=== PATIENT | male | born 1990 ===

== ENCOUNTER 2017-01-22 00:01 | Emergency (ER) | payer SELFPAY ==
[2017-01-22 00:06] VITALS: RESP 18
--- NOTE | 2017-01-22 01:29 | C.PDOC ---
History Of Present Illness 27 year old male was brought to the ED by EMS after being found intoxicated at a [employer]. Police were involved for alleged shoplifting. Patient admits to alcohol abuse and denies any injuries or physical complaints at this time. Time Seen by Provider: 01/22/17 00:18 Chief Complaint (Nursing): Substance Abuse History Per: Patient, EMS History/Exam Limitations: no limitations Suicide/Self Injury Attempted (Context): None Associated Symptoms: denies: Suicidal Thoughts, Suicidal Plan Involuntary Hold By: None Recent travel outside of the [place]: No Past Medical History Reviewed: Historical Data, Nursing Documentation, Vital Signs Vital Signs: Last Vital Signs Temp 98.2 F 01/22/17 03:08 Pulse 68 01/22/17 03:08 Resp 18 01/22/17 03:08 BP 98/66 L 01/22/17 03:08 Pulse Ox 98 01/22/17 03:08 Family History: States: Unknown Family Hx - Social History Hx Alcohol Use: Yes Hx Substance Use: No Review Of Systems Constitutional: Negative for: Fever Cardiovascular: Negative for: Chest Pain Respiratory: Negative for: Shortness of Breath Gastrointestinal: Negative for: Nausea, Vomiting, Abdominal Pain, Diarrhea Psych: Negative for: Suicidal ideation Physical Exam - Physical Exam Appears: Non-toxic, No Acute Distress, Other (EtOH on breath, patient difficult to redirect. ) Skin: Warm, Dry Head: Atraumatic Eye(s): bilateral: Normal Inspection, PERRL, EOMI Oral Mucosa: Moist Neck: Supple Chest: Symmetrical, No Deformity Cardiovascular: Rhythm Regular Respiratory: Normal Breath Sounds, No Rhonchi, No Wheezing Gastrointestinal/Abdominal: Soft, No Tenderness, No Distention, No Guarding, No Rebound Neurological/Psych: Oriented x3 ED Course And Treatment O2 Sat by Pulse Oximetry: 98 (room air ) Reevaluation Time: 05:30 Reassessment Condition: Improved Medical Decision Making Medical Decision Making: alcohol intox requiring sedation for safety ED OBSERVATION Discharge: Yes Date of observation admission: 01/22/17 Time of observation admission: 01:00 - Observation admission statement Patient is being placed in observation because:: patient is intoxicated. - Goals of Observation Goals of observation are:: sobriety. Disposition Doctor Will See Patient In The: Office Counseled Patient/Family Regarding: Studies Performed, Diagnosis - Disposition Disposition: HOME/ ROUTINE Disposition Time: 05:30 Condition: GOOD Forms: [facility] (Anguillan) - Clinical Impression Clinical Impression: Alcohol abuse - Scribe Statement The provider has reviewed the documentation as recorded by the Scribe Joya Dorado All medical record entries made by the Scribe were at my direction and personally dictated by me. I have reviewed the chart and agree that the record accurately reflects my personal performance of the history, physical exam, medical decision making, and the department course for this patient. I have also personally directed, reviewed, and agree with the discharge instructions and disposition.
[2017-01-22 05:36] VITALS: BP 101/63; PULSE 95; TEMP 98; O2SAT 97
== END 2017-01-22 05:39 | disposition home or self-care (01) ==
LOC: C.ER 00:01
DX: F10.10 Alcohol abuse, uncomplicated (principal)
CPT/HCPCS: 82948; 96372; 99285; J2060; J3486

== ENCOUNTER 2017-02-01 10:21 | Emergency (ER) | payer OTHER ==
[2017-02-01 11:23] LABS: BASO % 0.2 % (0.0-2.0); EOS % 0.1 % (0.0-4.0); HEMATOCRIT 47.3 % (35.0-51.0); LYMPH # 1.1 K/uL (1.0-4.3); LYMPH % 15.1 % (20.0-40.0); MEAN CELL VOLUME 87.1 fL (80.0-94.0); MEAN CORPUSCULAR HEMOGLOBIN 29.2 pg (27.0-31.0); MEAN CORPUSCULAR HGB CONC 33.6 g/dL (33.0-37.0); MEAN PLATELET VOLUME 9.3 fL (7.2-11.7); MONO # 0.6 K/uL (0.0-0.8); RED CELL DISTRIBUTION WIDTH 13.3 % (11.5-14.5); WHITE BLOOD COUNT 7.1 K/uL (4.8-10.8)
[2017-02-01 11:29] LABS: CHLORIDE 95 mmol/L (98-107); POTASSIUM 3.9 mmol/L (3.6-5.2); SODIUM 135 mmol/L (132-148)
[2017-02-01] MEDS ORDERED: Sodium Chloride 0.9% 1,000 ML IV ONE (11:30)
[2017-02-01 11:31] LABS: GFR AFRICAN-AMERICAN > 60
[2017-02-01 11:32] LABS: ALB/GLOB RATIO 1.3 (1.0-2.1); ALKALINE PHOSPHATASE 95 U/L (38-126); ALT/SGPT 34 U/L (21-72); AST/SGOT 43 U/L (17-59); BLOOD UREA NITROGEN 11 mg/dL (9-20); CALCIUM 9.2 mg/dl (8.6-10.4); CARBON DIOXIDE 28 mmol/L (22-30); GLUCOSE,RANDOM 102 mg/dL (75-110); TOTAL PROTEIN 7.9 g/dL (6.3-8.3)
[2017-02-01 11:36] LABS: RBC URINE < 1 /hpf (0-3); URINE BACTERIA RARE (<OCC); URINE BILIRUBIN NEGATIVE (NEGATIVE); URINE BLOOD NEGATIVE (NEGATIVE); URINE COLOR Amber (YELLOW); URINE GLUCOSE (UA) NORMAL (Normal); URINE KETONE TRACE mg/dL (NEGATIVE); URINE LEUKOCYTE ESTERASE NEG Leu/uL (Negative); URINE PROTEIN 1+ mg/dL (NEGATIVE); WBC URINE 1 /hpf (0-5)
--- NOTE | 2017-02-01 11:43 | C.PDOC ---
History Of Present Illness 27 yr old male presents to the ER with complaints of epigastric pain, nausea and vomiting stating he has been binging on alcohol, percocet and marijuana for the past 5 days. Patient is also requesting detox. He denies SI, HI, fever, chest pain, SOB, diarrhea, dysuria. Time Seen by Provider: 02/01/17 10:26 Chief Complaint (Nursing): Abdominal Pain History Per: Patient History/Exam Limitations: no limitations Onset/Duration Of Symptoms: Days Severity: Mild Past Medical History Reviewed: Historical Data, Nursing Documentation, Vital Signs Vital Signs: Last Vital Signs Temp 98 F 02/01/17 11:58 Pulse 88 02/01/17 11:58 Resp 20 02/01/17 11:58 BP 118/86 02/01/17 11:58 Pulse Ox 100 02/01/17 12:05 - Medical History PMH: Gastritis Family History: States: No Known Family Hx - Social History Hx Alcohol Use: Yes Hx Substance Use: Yes Review Of Systems Except As Marked, All Systems Reviewed And Found Negative. Constitutional: Negative for: Fever Cardiovascular: Negative for: Chest Pain, Palpitations Respiratory: Negative for: Shortness of Breath Gastrointestinal: Positive for: Nausea, Vomiting, Abdominal Pain (Epigastric ). Negative for: Diarrhea Genitourinary: Negative for: Dysuria Neurological: Negative for: Weakness, Numbness Psych: Negative for: Suicidal ideation Physical Exam - Physical Exam Appears: Well, Non-toxic, No Acute Distress Skin: Warm, Dry, No Rash Oral Mucosa: Moist Cardiovascular: Rhythm Regular, No Murmur Respiratory: Normal Breath Sounds, No Rales, No Rhonchi, No Wheezing Gastrointestinal/Abdominal: Normal Exam, Bowel Sounds, Soft, No Tenderness, No Rebound Extremity: Normal ROM, No Swelling Neurological/Psych: Oriented x3 ED Course And Treatment - Laboratory Results Result Diagrams: 02/01/17 11:18 02/01/17 11:18 O2 Sat by Pulse Oximetry: 100 (RA) Pulse Ox Interpretation: Normal Progress Note: PLAN: Blood work, UA, UDS ordered and reviewed. Patient given IV NS bolus, IV pepcid and IV zofran. Spoke with crisis counselor, there are no current detox beds available. Reevaluation Time: 11:45 Reassessment Condition: Improved (Patient reassessed, is currently resting comfortably and states he feels better. On exam, abdomen is soft and nontender. Blood work and UA unremarkable. Patient is well appearing and comfortable being discharged home. Rxs for pepcid and zofran given. Patient instructed to follow up with PMD/clinic in 1-2 days, and he understands he should return to ED if symptoms worsen.) Disposition Counseled Patient/Family Regarding: Diagnosis, Need For Followup, Rx Given - Disposition Referrals: [facility] [Outside] Disposition: HOME/ ROUTINE Disposition Time: 11:45 Condition: STABLE Additional Instructions: SEGUIMIENTO CON MAYS DOCTOR / CLNICA EN 1-2 CARRASCO USE LOS MEDICAMENTOS QUE VIDAL NECESARIOS BEBIDA DE FLUIDOS CORTNEY DEVUELVA A LA ALEXANDRE DE EMERGENCIA SI LOS SNTOMAS EMPEORARAN Prescriptions: Famotidine [Pepcid] 20 mg PO BID PRN #15 tab PRN Reason: abdominal Ondansetron [Zofran Odt] 4 mg PO Q8 PRN #12 odt PRN Reason: Nausea/Vomiting Instructions: Abuse of Alcohol (ED), Polysubstance Abuse (ED), Epigastric Pain (ED) Forms: [employer] (Macanese) Print Language: UZBEK - Clinical Impression Clinical Impression: Epigastric abdominal pain, Alcohol abuse, Substance abuse - Scribe Statement The provider has reviewed the documentation as recorded by the Scribjoel Matthews Provider Attestation: All medical record entries made by the Scribe were at my direction and personally dictated by me. I have reviewed the chart and agree that the record accurately reflects my personal performance of the history, physical exam, medical decision making, and the department course for this patient. I have also personally directed, reviewed, and agree with the discharge instructions and disposition.
[2017-02-01 11:58] VITALS: BP 118/86; PULSE 88; RESP 20; TEMP 98
[2017-02-01 12:01] VITALS: O2SAT 100
== END 2017-02-01 12:15 | disposition home or self-care (01) ==
LOC: C.ER 10:21
DX: F10.10 Alcohol abuse, uncomplicated (principal); F12.10 Cannabis abuse, uncomplicated; Y90.9 Presence of alcohol in blood, level not specified; R10.13 Epigastric pain
CPT/HCPCS: 80053; 81001; 83690; 85025; 96361; 96374; 96375; 99285; G0480; J2405; J7040

== ENCOUNTER 2017-10-09 08:44 | Emergency (ER) | payer OTHER ==
[2017-10-09 08:44] VITALS: BMI 21.1
[2017-10-09] MEDS ORDERED: Pantoprazole 40 mg EC Tab PO STA (09:42)
[2017-10-09] MEDS ORDERED: Sodium Chloride 0.9% 1,000 ML IV ONE (09:42)
[2017-10-09] MEDS ORDERED: Sodium Chloride 0.9% 250 ML IV ONE (09:49)
--- NOTE | 2017-10-09 09:53 | C.PDOC ---
History Of Present Illness 27 yo male come in for evaluation of intermittent periumbilical pain for past 2 days. Otherwise, denies fever, chills, recent illness, food intolerance, CP,SOB , dyspnea, diaphoresis, cough, vomiting, diarrhea, back pain, UTI sx. At the time of evaluation, pt appears comfortable, not in any apparent distress. Time Seen by Provider: 10/09/17 09:01 Chief Complaint (Nursing): Abdominal Pain History Per: Patient Onset/Duration Of Symptoms: Intermittent Episodes Past Medical History Reviewed: Historical Data, Nursing Documentation, Vital Signs Vital Signs: Last Vital Signs Temp 98.5 F 10/09/17 12:17 Pulse 66 10/09/17 12:17 Resp 17 10/09/17 12:17 BP 114/68 10/09/17 12:17 Pulse Ox 97 10/09/17 12:55 - Medical History PMH: Gastritis Surgical History: No Surg Hx Family History: States: Unknown Family Hx - Social History Hx Tobacco Use: No Hx Alcohol Use: Yes Hx Substance Use: Yes - Immunization History Hx Tetanus Toxoid Vaccination: No Hx Influenza Vaccination: No Hx Pneumococcal Vaccination: No Review Of Systems Except As Marked, All Systems Reviewed And Found Negative. Constitutional: Negative for: Fever, Chills ENT: Negative for: Throat Pain Cardiovascular: Negative for: Chest Pain, Palpitations Respiratory: Negative for: Cough, Shortness of Breath, Wheezing Gastrointestinal: Positive for: Nausea, Abdominal Pain. Negative for: Vomiting , Diarrhea, Melena, Hematochezia, Hematemesis Genitourinary: Negative for: Dysuria Musculoskeletal: Negative for: Neck Pain, Back Pain Skin: Negative for: Rash Neurological: Negative for: Weakness, Numbness, Headache Physical Exam - Physical Exam Appears: Well, Non-toxic, No Acute Distress Skin: Normal Color, Warm, Dry, No Rash Head: Normacephalic Eye(s): bilateral: PERRL Nose: No Flaring, No Discharge Oral Mucosa: Moist Throat: No Erythema, No Drooling Neck: Trachea Midline, Supple Cardiovascular: Rhythm Regular Respiratory: No Decreased Breath Sounds, No Accessory Muscle Use, No Stridor, No Wheezing Gastrointestinal/Abdominal: Soft, Tenderness (periumbilical and RLQ mild tenderness), No Distention, No Guarding, No Rebound Back: No CVA Tenderness Extremity: Normal ROM, No Deformity, No Swelling Neurological/Psych: Oriented x3, Normal Speech ED Course And Treatment - Laboratory Results Result Diagrams: 10/09/17 10:17 10/09/17 10:17 Lab Interpretation: Normal O2 Sat by Pulse Oximetry: 97 Pulse Ox Interpretation: Normal - CT Scan/US CT abd/pelvis Other Rad Studies (CT/US): Radiology Report Reviewed CT/US Interpretation: PROCEDURE: CT Abdomen and Pelvis with contrast. HISTORY : abd pain. COMPARISON: None. TECHNIQUE: CT scan of the abdomen pelvis was performed after the administration of IV and oral contrast. Coronal and sagittal reconstructions were also acquired. . Contrast Dose: 100 cc Visipaque 320 IV contrast. Radiation dose: Total exam DLP = 480 mGy-cm. FINDINGS: LOWER THORAX: Visualized lung bases are clear. Heart is normal in size. LIVER : Unremarkable. GALLBLADDER AND BILE DUCTS: Unremarkable. PANCREAS: Unremarkable. SPLEEN: Unremarkable. ADRENALS: Unremarkable. KIDNEYS AND URETERS: Unremarkable. No hydronephrosis. VASCULATURE: The aorta is normal in caliber. STOMACH AND BOWEL: There is no abnormal small or large bowel dilatation. APPENDIX: Normal appendix. PERITONEUM: Unremarkable. No free fluid. No free air. LYMPH NODES: There is no significant abdominal or pelvic lymphadenopathy. BLADDER: Unremarkable. REPRODUCTIVE: Prostate is unremarkable. BONES: No acute fracture identified. OTHER FINDINGS: None. IMPRESSION: No acute intra-abdominal or intrapelvic process identified. Progress Note: Pt was OBS in ED for 3 hours and reports moderate improvement in sx. On re-evaluation, pt is Afebrile, hemodynamicaly stable. Neck: Supple. ENT: no acute findings. Lungs: CTA B/L, BS equal B/L. ABd: benign, (-) guarding, (-) rebound, (-) RLQ tenderness. Neurologicaly intact. Blood work review and appears normal. CT abd/pelvis-normal. Pt has clinical findings c/w epigastric pain. Advised. ref. to F/u with PMD in1 -2 days for re-eval. return if any new changes. Disposition Counseled Patient/Family Regarding: Studies Performed, Diagnosis, Need For Followup, Rx Given - Disposition Referrals: [facility] [Outside] Disposition: HOME/ ROUTINE Disposition Time: 12:01 Condition: STABLE Additional Instructions: Encourage fluids Take medication as prescribed Consider detox from cocaine Follow up with PMD and GI in 2-3 days for re-evaluation. Return to ED if any worsening or new changes. Prescriptions: Pantoprazole Sodium [Protonix] 40 mg PO DAILY #20 ect Instructions: Gastritis, Polysubstance Abuse Forms: [facility] (Turkmen), Work Excuse Print Language: BELARUSIAN - Clinical Impression Clinical Impression: Epigastric pain, Polysubstance (excluding opioids) dependence
[2017-10-09 10:03] LABS: SQUAMOUS EPITHIAL 1 /hpf (0-5); URINE BILIRUBIN NEGATIVE (NEGATIVE); URINE BLOOD NEGATIVE (NEGATIVE); URINE CLARITY Hazy (Clear); URINE COLOR Yellow (YELLOW); URINE GLUCOSE (UA) NORMAL (Normal); URINE LEUKOCYTE ESTERASE NEG Leu/uL (Negative); URINE PROTEIN NEGATIVE (NEGATIVE); URINE UROBILINOGEN NORMAL mg/dL (0.2-1.0)
[2017-10-09 10:20] LABS: BARBITURATES, UR NEGATIVE (NEGATIVE); BENZODIAZEPINES, UR NEGATIVE (NEGATIVE); OPIATES, UR NEGATIVE (NEGATIVE); PHENCYCLIDINE, UR NEGATIVE (NEGATIVE)
[2017-10-09 10:23] LABS: BASO % 0.2 % (0.0-2.0); EOS % 0.5 % (0.0-4.0); HEMOGLOBIN 16.3 g/dL (12.0-18.0); LYMPH # 1.4 K/uL (1.0-4.3); LYMPH % 16.6 % (20.0-40.0); MEAN CELL VOLUME 84.6 fL (80.0-94.0); MEAN CORPUSCULAR HEMOGLOBIN 28.8 pg (27.0-31.0); MEAN PLATELET VOLUME 9.4 fL (7.2-11.7); MONO # 0.5 K/uL (0.0-0.8); MONO % 5.9 % (0.0-10.0); NEUT # 6.5 K/uL (1.8-7.0); NEUT % 76.8 % (50.0-75.0); NRBC % 0.1 % (0.0-2.0); RBC 5.66 Mil/uL (4.40-5.90); RED CELL DISTRIBUTION WIDTH 13.4 % (11.5-14.5); WHITE BLOOD COUNT 8.5 K/uL (4.8-10.8)
[2017-10-09 10:36] LABS: ALB/GLOB RATIO 1.1 (1.0-2.1); ALBUMIN 4.7 g/dL (3.5-5.0); ALT/SGPT 23 U/L (21-72); AST/SGOT 28 U/L (17-59); BLOOD UREA NITROGEN 16 mg/dL (9-20); CALCIUM 9.2 mg/dl (8.6-10.4); GFR AFRICAN-AMERICAN > 60; GFR NON-AFRICAN AMERICAN > 60; LIPASE 30 U/L (23-300)
[2017-10-09] MEDS ORDERED: Iodixanol 320 MG/ML 100 ML BOTTLE IV ONE (11:13)
[2017-10-09 12:25] VITALS: BP 114/68; PULSE 66; RESP 17; TEMP 98.5
--- NOTE | 2017-10-09 12:26 | CT ---
PROCEDURE: CT Abdomen and Pelvis with contrast HISTORY: abd pain COMPARISON: None. TECHNIQUE: CT scan of the abdomen pelvis was performed after the administration of IV and oral contrast. Coronal and sagittal reconstructions were also acquired. . Contrast Dose: 100 cc Visipaque 320 IV contrast Radiation dose: Total exam DLP = 480 mGy-cm. FINDINGS: LOWER THORAX: Visualized lung bases are clear. Heart is normal in size. LIVER: Unremarkable. GALLBLADDER AND BILE DUCTS: Unremarkable. PANCREAS: Unremarkable. SPLEEN: Unremarkable. ADRENALS: Unremarkable. KIDNEYS AND URETERS: Unremarkable. No hydronephrosis. VASCULATURE: The aorta is normal in caliber. STOMACH AND BOWEL: There is no abnormal small or large bowel dilatation. APPENDIX: Normal appendix. PERITONEUM: Unremarkable. No free fluid. No free air. LYMPH NODES: There is no significant abdominal or pelvic lymphadenopathy. BLADDER: Unremarkable. REPRODUCTIVE: Prostate is unremarkable. BONES: No acute fracture identified. OTHER FINDINGS: None. IMPRESSION: No acute intra-abdominal or intrapelvic process identified.
[2017-10-09 12:50] VITALS: O2SAT 97
== END 2017-10-09 13:47 | disposition home or self-care (01) ==
LOC: C.ER 08:44
DX: R10.13 Epigastric pain (principal); F19.20 Other psychoactive substance dependence, uncomplicated
CPT/HCPCS: 74177; 80053; 80324; 80345; 80346; 80349; 80353; 80358; 80361; 81001; 83690; 83992; 85025; 96361; 96374; 96375; 99285; C9113; J2405; J7040; Q9967